=== PATIENT | female | born 1990 | race Caucasian/White ===

== ENCOUNTER 2017-05-04 12:02 | Emergency (ER) ==
[2017-05-04 12:10] VITALS: BP 104/71; TEMP 98.5; BMI 27.4
--- NOTE | 2017-05-04 12:28 | ED.PDOC ---
General ED Provider: Dr. JUDY DICKSON Chief Complaint: Vaginal Bleeding Stated Complaint: Vaginal bleeding; had a miscarriage a few weeks ago and believes she has an infection. Time Seen by Physician: 12:25 Mode of Arrival: Walk-In Information Source: Patient Exam Limitations: No limitations Nursing and Triage Documentation Reviewed and Agree: Yes Complaint Exam - UTI Female Complaint/Exam : 2 Para: 1 Hx Total # of Abortions (Spontaneous & Elective): 1 Review of Systems - Review Of Systems Constitutional: Reports: No symptoms Respiratory: Reports: No symptoms GI: Reports: No symptoms. Denies: Diarrhea, Nausea : Reports: Discharge (brown). Denies: Burning, Dysuria, Frequency, Urgency Skin: Reports: No symptoms, Bruising All Other Systems: Reviewed and Negative Past Medical History - Past Medical History Previously Healthy: Yes Endocrine: Reports: None Cardiovascular: Reports: None Respiratory: Reports: None Hematological: Reports: None Gastrointestinal: Reports: None Genitourinary: Reports: None Neuro/Psych: Reports: None Musculoskeletal: Reports: None Cancer: Reports: None Last Menstrual Period: FEB 16 - Surgical History General Surgical History: Reports: None - Family History Family History: Reports: Unknown - Social History Smoking Status: Current every day smoker Hx Substance Use: No Alcohol Screening: Occasionally Physical Exam - Physical Exam Appearance: Well-appearing ENT: Oropharynx normal Neck: Supple Respiratory: Airway patent, Breath sounds clear, Breath sounds equal Cardiovascular: RRR, Pulses normal GI/: Soft, Nontender, Bowel sounds normal Musculoskeletal: Normal strength, ROM intact, No edema Skin: Warm, Dry, Normal color Neurological: Sensation intact, Motor intact, Alert, Oriented Psychiatric: Affect appropriate, Mood appropriate Critical Care Note - Critical Care Note Total Time (mins): 10 Course - Course Hematology/Chemistry: 05/04/17 12:50 05/04/17 12:50 Orders, Labs, Meds: Lab Review 05/04/17 05/04/17 05/04/17 12:50 12:50 12:50 WBC 12.97 H RBC 4.30 Hgb 13.6 Hct 39.9 MCV 92.8 MCH 31.6 H MCHC 34.1 RDW Coeff of Matthieu 12.1 Plt Count 210 Immature Gran % (Auto) 0.3 Neut % (Auto) 76.0 Lymph % (Auto) 18.6 Dundy % (Auto) 4.4 Eos % (Auto) 0.5 Baso % (Auto) 0.2 Immature Gran # (Auto) 0.0 Neut # 9.9 H Lymph # 2.4 Dundy # 0.6 Eos # 0.1 Baso # 0.0 Sodium 140 Potassium 3.7 Chloride 104 Carbon Dioxide 24 Anion Gap 15.7 BUN 5 L Creatinine 0.58 L Estimated GFR (MDRD) 126.00 BUN/Creatinine Ratio 8.62 Glucose 82 Calcium 9.8 Total Bilirubin 0.52 AST 11 L ALT < 6 L Alkaline Phosphatase 81 Total Protein 7.9 Albumin 4.1 Globulin 3.8 Albumin/Globulin Ratio 1.08 Serum , Qual Positive Urine Color Urine Clarity Urine pH Ur Specific Wallace Urine Protein Urine Glucose (UA) Urine Ketones Urine Blood Urine Nitrite Urine Bilirubin Urine Urobilinogen Ur Leukocyte Esterase Urine Microscopic RBC Urine Microscopic WBC Ur Squamous Epith Cells 05/04/17 13:00 WBC RBC Hgb Hct MCV MCH MCHC RDW Coeff of Matthieu Plt Count Immature Gran % (Auto) Neut % (Auto) Lymph % (Auto) Dundy % (Auto) Eos % (Auto) Baso % (Auto) Immature Gran # (Auto) Neut # Lymph # Dundy # Eos # Baso # Sodium Potassium Chloride Carbon Dioxide Anion Gap BUN Creatinine Estimated GFR (MDRD) BUN/Creatinine Ratio Glucose Calcium Total Bilirubin AST ALT Alkaline Phosphatase Total Protein Albumin Globulin Albumin/Globulin Ratio Serum , Qual Urine Color Yellow Urine Clarity Clear Urine pH 6.5 Ur Specific Wallace 1.010 Urine Protein Negative Urine Glucose (UA) Negative Urine Ketones Negative Urine Blood 2+ Urine Nitrite Negative Urine Bilirubin Negative Urine Urobilinogen 0.2 Ur Leukocyte Esterase 2+ Urine Microscopic RBC 5-10 Urine Microscopic WBC 10-20 Ur Squamous Epith Cells 2-5 Orders Category Date Time Status CBC W/ AUTO DIFF Stat LAB 05/04/17 12:50 Completed COMPREHENSIVE METABOLIC PANEL Stat LAB 05/04/17 12:50 Completed SERUM Stat LAB 05/04/17 12:50 Completed URINALYSIS C & S IF INDICATED Stat LAB 05/04/17 13:00 Completed URINE CULTURE Stat LAB 05/04/17 13:00 Received Vital Signs: Temp Pulse Resp BP Pulse Ox 05/04/17 12:04 98.5 F 94 H 16 104/71 99 Departure - Departure Time of Disposition: 13:48 Disposition: HOME SELF-CARE Discharge Problem: Urinary tract infection Qualifiers: Urinary tract infection type: acute cystitis Hematuria presence: with hematuria Qualified Code(s): N30.01 - Acute cystitis with hematuria Instructions: Urinary Tract Infection in Women (ED) Condition: Good Pt referred to PMD for follow-up: Yes (Call [facility] for appointment) Additional Instructions: Take antibiotic as prescribed; must follow up with [facility] for following Prescriptions: Azithromycin [Zithromax] 1,000 mg PO ONCE #2 tablet Sulfamethoxazole/Trimethoprim [Bactrim Ds Tablet] 1 each PO BID #20 tablet Allergies/Adverse Reactions: Allergies Penicillins Adverse Reaction (Verified 05/04/17 12:03) Home Medications: Ambulatory Orders Azithromycin [Zithromax] 1,000 mg PO ONCE #2 tablet 05/04/17 Sulfamethoxazole/Trimethoprim [Bactrim Ds Tablet] 1 each PO BID #20 tablet 05/04
[2017-05-04 13:03] LABS: BASOPHILS % (AUTO) 0.2 % (0.0-3.0); EOSINOPHILS # (AUTO) 0.1 K/ul (0.0-0.7); EOSINOPHILS % (AUTO) 0.5 % (0.0-7.0); HEMATOCRIT 39.9 % (37.0-47.0); HEMOGLOBIN 13.6 g/dl (12.0-16.0); IMMATURE GRANULOCYTE % (AUTO) 0.3 % (0.0-5.0); LYMPHOCYTES # (AUTO) 2.4 K/uL (0.60-3.4); LYMPHOCYTES % (AUTO) 18.6 (10.0-50.0); MEAN CORPUSCULAR HEMOGLOBIN 31.6 pg (27.0-31.0); MEAN CORPUSCULAR HGB CONC 34.1 (31.8-35.4); MEAN CORPUSCULAR VOLUME 92.8 fl (81.0-99.0); MONOCYTES # (AUTO) 0.6 K/uL (0.4-2.0); MONOCYTES % (AUTO) 4.4 (0-10); NEUTROPHILS # (AUTO) 9.9 K/ul (2.0-6.9); PLATELET COUNT 210 10^3/uL (140-440); WHITE BLOOD COUNT 12.97 K/ul (4.6-10.2)
[2017-05-04 13:11] LABS: SERUM PREGNANCY INTERNAL QC INTERNAL QC VALID
[2017-05-04 13:14] LABS: BILIRUBIN,URINE Negative (NEGATIVE); KETONES,URINE Negative (NEGATIVE); LEUKOCYTE ESTERASE ,URINE 2+ (NEGATIVE); NITRITE,URINE Negative (NEGATIVE); PH,URINE 6.5 (5-9); PROTEIN,URINE Negative (NEGATIVE); URINE, BLOOD 2+ (NEGATIVE)
[2017-05-04 13:20] LABS: ALANINE AMINOTRANSFERASE < 6 U/L (12-78); ALBUMIN 4.1 g/dL (3.4-5.0); ALBUMIN/GLOBULIN RATIO 1.08; ALKALINE PHOSPHATASE 81 U/L (42-98); ANION GAP 15.7; ASPARTATE AMINO TRANSFERASE 11 U/L (15-37); BILIRUBIN,TOTAL 0.52 mg/dL (0.00-1.20); BLOOD UREA NITROGEN 5 mg/dL (7-18); BUN/CREATININE RATIO 8.62; CALCIUM 9.8 mg/dL (8.2-10.2); CARBON DIOXIDE 24 mmol/L (21-32); CHLORIDE 104 mmol/L (98-107); CREATININE 0.58 mg/dL (0.60-1.30); GLUCOSE 82 mg/dL (70-110); POTASSIUM 3.7 mmol/L (3.5-5.10); SODIUM 140 mmol/L (136-145); TOTAL PROTEIN 7.9 g/dL (6.4-8.2)
[2017-05-04 13:22] LABS: ADD URINE MICROSCOPIC YES
== END 2017-05-04 14:10 | disposition home or self-care (01) ==
LOC: ED 12:02
DX: N30.01 Acute cystitis with hematuria (principal); F17.210 Nicotine dependence, cigarettes, uncomplicated
CPT/HCPCS: 36415; 80053; 81001; 84703; 85025; 87086; 99282